=== PATIENT | male | born 1980 | race Caucasian/White ===

== ENCOUNTER 2019-09-01 15:30 | Emergency (ER) | payer OTHER ==
[~2019-09-01] VITALS: Ht 172.7 cm; Wt 70.3 kg
[2019-09-01] MEDS ORDERED: NORCO 5-325 TA1 EAC2 PO (16:30)
[2019-09-01 16:40] VITALS: BP 114/65
== END 2019-09-01 16:43 | disposition home or self-care (01) ==
LOC: ER 15:30
DX: M25.561 Pain in right knee (principal); X50.1XXA Overexertion from prolonged static or awkward postures, initial encounter; Y93.89 Activity, other specified; Y92.89 Other specified places as the place of occurrence of the external cause; Y99.8 Other external cause status